=== PATIENT | male | born 1975 | race Caucasian/White ===

== ENCOUNTER 2017-06-25 14:13 | Inpatient (IN) | payer SELFPAY ==
[2017-06-25 14:46] LABS: PLATELET COUNT 282 10^3/uL (150-400)
--- NOTE | 2017-06-25 15:06 | EDPHY ---
General Time Seen by Provider: 06/25/17 14:51 Narrative: CHIEF COMPLAINT: M1 HISTORY OF PRESENT ILLNESS: Patient arrives on an M1 hold from [facility]. They documented that the patient is suicidal, exhibiting paranoid delusions. He denies delusions but does state he has been feeling suicidal. This comes and goes for him. He denies a plan. He denies any intent at this time but does have intent at certain times. Has history of bipolar disorder and major depressive disorder. PSYCHIATRIC DIAGNOSES: Bipolar disorder, major depression disorder, suicidal ideation PRIOR PSYCHIATRIC EVALUATIONS: Multiple M1/DETAINER: Just prior to arrival, [facility] REVIEW OF SYSTEMS: Ten systems reviewed and are negative unless otherwise noted in the HPI EXAMINATION General Appearance: Alert, no distress. Well kempt Head: normocephalic, atraumatic Eyes: Pupils equal and round, no conjunctival pallor or injection ENT, Mouth: Mucous membranes moist Neck: Normal inspection, supple, non-tender Respiratory: Lungs are clear to auscultation Cardiovascular: Regular rate and rhythm. No murmur Gastrointestinal: Abdomen is soft and nontender Back: non-tender, no bony abnormalities Neurological: A&O, nonfocal, normal gait Skin: Warm and dry, no rash. Multiple tattoos Extremities: Nontender, no pedal edema Psychiatric: Hypomanic. Describes paranoid delusions. Admits to suicidal ideation. DIFFERENTIAL DIAGNOSES: Including but not limited to bipolar disorder, paranoid schizophrenia, delusions , suicidal ideation, tracee, hypomania, abnormal lithium levels MDM: 3:05 p.m. M1 hold due to bipolar with paranoid schizophrenia and suicidal ideation. The patient does exhibit suicidal thoughts, hypomanic or manic behavior. He is exhibiting flight of ideas. He is calm and cooperative at this time. He has been placed on an M1 hold by [facility]. Laboratory studies including lithium level are pending. 3:13 p.m. At this time the patient is medically cleared for evaluation. His drug screen does reveal positive cocaine. We will discuss with [facility] 4:05 p.m. Mara is here to evaluate the patient. 6:00 p.m. Patient has been accepted to [address] [place] [address] for inpatient psychiatric care. EMTALA has been completed and signed by Dr. Engel. He will be transferred by EMS. Transported stable condition. SUPERVISION: Patient was independently examined, but I discussed the case with my secondary supervising physician Dr. Engel - History Smoking Status: Never smoked - Objective Vital Signs: Initial Vital Signs Temperature (C) 98.1 F 06/25/17 14:28 Heart Rate 60 06/25/17 14:28 Respiratory Rate 18 06/25/17 14:28 Blood Pressure 144/88 H 06/25/17 14:28 O2 Sat (%) 95 06/25/17 14:28 O2 Delivery Mode Room Air Allergies/Adverse Reactions: No Known Allergies Allergy (Unverified 06/25/17 14:30) Home Medications: Medication Instructions Recorded Gabapentin 06/25/17 Lexapro 06/25/17 Pillow Carbonate 06/25/17 Seroquel 06/25/17 Laboratory Results: Laboratory Results 06/25/17 14:20 06/25/17 06/25/17 06/25/17 14:20 14:20 14:20 WBC 8.25 10^3/uL 10^3/uL (3.80-9.50) RBC 5.53 10^6/uL 10^6/uL (4.40-6.38) Hgb 16.5 g/dL g/dL (13.7-17.5) Hct 49.9 % % (40.0-51.0) MCV 90.2 fL fL (81.5-99.8) MCH 29.8 pg pg (27.9-34.1) MCHC 33.1 g/dL g/dL (32.4-36.7) RDW 12.5 % % (11.5-15.2) Plt Count 282 10^3/uL 10^3/uL (150-400) MPV 9.8 fL fL (8.7-11.7) Neut % (Auto) 60.1 % % (39.3-74.2) Lymph % (Auto) 29.2 % % (15.0-45.0) [place] % (Auto) 9.3 % % (4.5-13.0) Eos % (Auto) 0.8 % % (0.6-7.6) Baso % (Auto) 0.5 % % (0.3-1.7) Nucleat RBC Rel Count 0.0 % % (0.0-0.2) Absolute Neuts (auto) 4.95 10^3/uL 10^3/uL (1.70-6.50) Absolute Lymphs (auto) 2.41 10^3/uL 10^3/uL (1.00-3.00) Absolute Monos (auto) 0.77 10^3/uL 10^3/uL (0.30-0.80) Absolute Eos (auto) 0.07 10^3/uL 10^3/uL (0.03-0.40) Absolute Basos (auto) 0.04 10^3/uL 10^3/uL (0.02-0.10) Absolute Nucleated RBC 0.00 10^3/uL 10^3/uL (0-0.01) Immature Gran % 0.1 % % (0.0-1.1) Immature Gran # 0.01 10^3/uL 10^3/uL (0.00-0.10) Urine Opiates Screen NEGATIVE (NEGATIVE) Urine Barbiturates NEGATIVE (NEGATIVE) Ur Phencyclidine Scrn NEGATIVE (NEGATIVE) Ur Amphetamine Screen NEGATIVE (NEGATIVE) U Benzodiazepines Scrn NEGATIVE (NEGATIVE) Pillow 0.3 mEq/L L mEq/L (0.6-1.2) Urine Cocaine Screen NON-NEGATIVE H (NEGATIVE) U Marijuana (THC) Screen NON-NEGATIVE H (NEGATIVE) Ethyl Alcohol < 10 mg/dL mg/dL (0-10) Medications Given: Discontinued Medications Quetiapine Fumarate (Seroquel) 100 mg PO EDNOW ONE Stop: 06/25/17 18:07 Last Admin: 06/25/17 18:07 Dose: 100 mg Departure - Departure Disposition: [facility] IP Clinical Impression: Suicidal ideation, Bipolar 1 disorder Condition: Fair Referrals: [facility] [Other] - As per Instructions
[2017-06-25] MEDS ORDERED: QUEtiapine FUMARATE 200 MG TAB ONE (18:03)
[2017-06-25] MEDS ORDERED: QUEtiapine FUMARATE 200 MG TAB PO ONE (18:06)
[2017-06-25] MEDS ORDERED: MAG HYDROX/AL HYDROX/SIMETH 30 ML UDCUP PO PRN (20:39)
[2017-06-25] MEDS ORDERED: MAGNESIUM HYDROXIDE 30 ML UDCUP PO PRN (20:39)
[2017-06-25] MEDS ORDERED: NICOTINE POLACRILEX 2 MG GUM B PRN (20:39)
[2017-06-25] MEDS ORDERED: MELATONIN 3 MG TAB PO PRN (20:45)
[2017-06-25] MEDS: FLUTICASONE/SALMETER 250/50MCG DISKUS IH SCH (21:26)
[2017-06-25] MEDS: ESCITALOPRAM OXALATE 10 MG TAB PO SCH (21:26)
[2017-06-25] MEDS: GABAPENTIN 300 MG CAP PO SCH (21:27)
[2017-06-25] MEDS: LITHIUM CARBONATE ER 300 MG TAB PO SCH (21:28)
[2017-06-25] MEDS: QUEtiapine FUMARATE 300 MG TAB PO SCH (21:29)
[2017-06-25] MEDS: LORazepam 0.5 MG TAB PO PRN (21:37)
[2017-06-26] MEDS ORDERED: LEVOTHYROXINE 75 MCG TAB PO SCH (06:00)
[2017-06-26] MEDS: LORazepam 0.5 MG TAB PO PRN ×3 (06:34→20:07)
[2017-06-26] MEDS: buPROPion XL 150 MG TAB PO SCH (08:23)
[2017-06-26] MEDS: LITHIUM CARBONATE ER 300 MG TAB PO SCH ×2 (08:23→21:11)
[2017-06-26] MEDS: FLUTICASONE/SALMETER 250/50MCG DISKUS IH SCH ×2 (08:23→21:15)
[2017-06-26] MEDS: ACETAMINOPHEN 325 MG TAB PO PRN (11:21)
[2017-06-26] MEDS: OLANZapine DISINTEGR 5 MG TAB PO PRN (12:42)
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
[2017-06-26] MEDS: ESCITALOPRAM OXALATE 10 MG TAB PO SCH (21:10)
[2017-06-26] MEDS: GABAPENTIN 300 MG CAP PO SCH (21:11)
[2017-06-26] MEDS: QUEtiapine FUMARATE 300 MG TAB PO SCH (21:12)
[2017-06-27] MEDS: LORazepam 0.5 MG TAB PO PRN ×2 (06:02→20:04)
[2017-06-27] MEDS: OLANZapine DISINTEGR 5 MG TAB PO PRN (06:06)
[2017-06-27] MEDS: FLUTICASONE/SALMETER 250/50MCG DISKUS IH SCH ×2 (08:33→20:05)
[2017-06-27] MEDS: LITHIUM CARBONATE ER 300 MG TAB PO SCH ×2 (08:33→20:04)
[2017-06-27] MEDS: buPROPion XL 150 MG TAB PO SCH (08:33)
[2017-06-27] MEDS: LEVOTHYROXINE 75 MCG TAB PO SCH (09:32)
[2017-06-27] MEDS: ACETAMINOPHEN 325 MG TAB PO PRN (10:58)
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
--- NOTE | 2017-06-27 14:21 | CPEKG ---
Heart Rate: 53 RR Interval: 1132 P-R Interval: 184 QRSD Interval: 106 QT Interval: 452 QTC Interval: 425 P De Leon: 51 QRS De Leon: -42 T Wave De Leon: 36 EKG Severity - NORMAL ECG - EKG Impression: SINUS RHYTHM EKG Impression: Early R wave progression Electronically Signed By: Davi Gamboa 27-Jun-2017 16:03:21
[2017-06-27] MEDS ORDERED: ALBUTEROL 60 PUFFS/8 GM MDI IH PRN (17:01)
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
[2017-06-27] MEDS: QUEtiapine FUMARATE 300 MG TAB PO SCH (20:04)
[2017-06-27] MEDS: ESCITALOPRAM OXALATE 10 MG TAB PO SCH (20:05)
[2017-06-27] MEDS: GABAPENTIN 300 MG CAP PO SCH (20:05)
[2017-06-28] MEDS: LORazepam 0.5 MG TAB PO PRN ×3 (02:30→21:03)
[2017-06-28] MEDS: OLANZapine DISINTEGR 5 MG TAB PO PRN ×3 (02:38→22:59)
[2017-06-28] MEDS: FLUTICASONE/SALMETER 250/50MCG DISKUS IH SCH ×2 (08:02→21:00)
[2017-06-28] MEDS: ACETAMINOPHEN 325 MG TAB PO PRN (08:03)
[2017-06-28] MEDS: buPROPion XL 150 MG TAB PO SCH (08:03)
[2017-06-28] MEDS: LITHIUM CARBONATE ER 300 MG TAB PO SCH ×2 (08:03→18:08)
[2017-06-28] MEDS: LEVOTHYROXINE 75 MCG TAB PO SCH (09:29)
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
[2017-06-28] MEDS: ESCITALOPRAM OXALATE 10 MG TAB PO SCH (21:00)
[2017-06-28] MEDS: QUEtiapine FUMARATE 300 MG TAB PO SCH (21:00)
[2017-06-28] MEDS: GABAPENTIN 300 MG CAP PO SCH (21:00)
[2017-06-29] MEDS: LORazepam 0.5 MG TAB PO PRN ×2 (05:19→12:46)
[2017-06-29 06:12] VITALS: BP 113/79
[2017-06-29] MEDS: LITHIUM CARBONATE ER 300 MG TAB PO SCH (08:17)
[2017-06-29] MEDS: buPROPion XL 150 MG TAB PO SCH (08:17)
[2017-06-29] MEDS: OLANZapine DISINTEGR 5 MG TAB PO PRN (08:17)
[2017-06-29] MEDS: FLUTICASONE/SALMETER 250/50MCG DISKUS IH SCH (08:17)
[2017-06-29] MEDS: LEVOTHYROXINE 75 MCG TAB PO SCH (10:08)
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
== END 2017-06-29 13:55 | disposition home or self-care (01) | DRG 885 ==
LOC: EEVIPCON 14:13 → BBEH 19:40
PROVIDERS: ADMIT Psychiatry & Neurology Psychiatry; ATTEND Psychiatry & Neurology Psychiatry
DX: F31.2 Bipolar disorder, current episode manic severe with psychotic features (principal); J45.909 Unspecified asthma, uncomplicated; E03.9 Hypothyroidism, unspecified; F14.959 Cocaine use, unspecified with cocaine-induced psychotic disorder, unspecified; F12.959 Cannabis use, unspecified with psychotic disorder, unspecified
CPT/HCPCS: 80305; G0480

== ENCOUNTER 2017-12-02 15:19 | Inpatient (IN) | payer MEDICAID ==
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
[2017-12-02 16:10] LABS: PLATELET COUNT 226 10^3/uL (150-400)
[2017-12-02] MEDS ORDERED: IOPAMIDOL (ISOVUE 370) 100 ML BTL IV ONE (17:36)
[2017-12-02] MEDS ORDERED: ACETAMINOPHEN 325 MG TAB PO PRN (19:36)
[2017-12-02] MEDS ORDERED: ONDANSETRON DISINTEGRATING 4 MG TAB PO PRN (19:36)
[2017-12-02] MEDS ORDERED: HYDROCODONE/APAP 5/325 TAB PO PRN (19:36)
[2017-12-02] MEDS ORDERED: IBUPROFEN 200 MG TAB PO PRN (19:36)
[2017-12-02] MEDS ORDERED: oxyCODONE IR 5 MG TAB PO PRN (19:36)
[2017-12-02] MEDS ORDERED: ONDANSETRON 4 MG/2 ML VIAL IVP PRN (19:36)
[2017-12-02] MEDS ORDERED: ALBUTEROL 60 PUFFS/8 GM MDI IH PRN (19:38)
[2017-12-02] MEDS ORDERED: QUEtiapine FUMARATE 50 MG TAB PO PRN (19:38)
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
[2017-12-02] MEDS: QUEtiapine FUMARATE 300 MG TAB PO SCH (20:13)
[2017-12-02] MEDS: AZITHROMYCIN 250 MG TAB PO SCH (20:13)
[2017-12-02] MEDS: LITHIUM CARBONATE ER 300 MG TAB PO SCH (20:13)
[2017-12-02] MEDS: GABAPENTIN 300 MG CAP PO SCH (20:13)
[2017-12-02] MEDS: NS W/ 20 KCl/L 1,000 ML IV SCH (20:14)
[2017-12-03] MEDS: NS W/ 20 KCl/L 1,000 ML IV SCH (03:45)
[2017-12-03] MEDS: LEVOTHYROXINE 75 MCG TAB PO SCH (04:48)
[2017-12-03 06:18] LABS: PLATELET COUNT 221 10^3/uL (150-400)
--- NOTE | 2017-12-03 09:02 | PDMN ---
Medical Necessity Medical necessity: MCG 42 y/o w/ left sided CAP, WBC 22.69, acute hypoxic resp fx (84% on RA), oxygen required to keep sats >90%, small left pleural effusion noted, hyponatremic, sched nebs, IV antibx and IVF started, BC pending. Hx bipolar d/o
[2017-12-03] MEDS: buPROPion XL 150 MG TAB PO SCH (09:39)
[2017-12-03] MEDS: AZITHROMYCIN 250 MG TAB PO SCH (09:39)
[2017-12-03] MEDS: ESCITALOPRAM OXALATE 10 MG TAB PO SCH (09:40)
[2017-12-03] MEDS: LITHIUM CARBONATE ER 300 MG TAB PO SCH ×2 (09:40→20:22)
[2017-12-03] MEDS: FLUTICASONE/SALMETER 250/50MCG DISKUS IH SCH (09:40)
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
--- NOTE | 2017-12-03 14:07 | HOSPPROG ---
Hospitalist Progress Note Assessment/Plan: 42yo M with history of bipolar d/o, polysubstance abuse presents with dyspnea and cough found to have pneumonia. #LLL pneumonia: RVP + for rhinovirus but appearance of infiltrate on CT suspicious for superimposed bacterial process. Treating for CAP. Small pleural effusion. - CTX + azithromycin - Sent off legionella and strep pneumo urine ags - Monitor for complications including worsening parapneumonic effusion #Acute hypoxemic respiratory insufficiency: Now resolved - Continue home bronchodilators #Pleuritis: Related to pna. - Ibuprofen #Hyponatremia: Resolved with IVF. #Hypothyroidism: Home LT4. #Bipolar: Compensated. Continue home meds. VTE ppx: SCDs Dispo: Remain inpatient for IV antibiotics. I don't feel comfortable with him discharging yet given the severity of his pneumonia on imaging. Subjective: Still feeling short of breath with activity and coughing up slightly reddish material. Also having pain when takes deep breath. No fevers. Objective: Vital Signs Temp Pulse Resp BP Pulse Ox 36.6 C 52 L 12 94/64 L 89 L 12/03/17 11:03 12/03/17 11:04 12/03/17 11:03 12/03/17 11:04 12/03/17 11:03 Microbiology 12/02/17 22:50 Respiratory Panel (PCR) - Final Nasal, Sinus - Swab Human Rhinovirus/Enterovirus Laboratory Results 12/03/17 05:32 12/03/17 05:32 12/02/17 12/03/17 12/04/17 05:59 05:59 05:59 Intake Total 100 Balance 100 - Physical Exam Constitutional: no apparent distress, appears nourished, not in pain Eyes: PERRL, anicteric sclera, EOMI Ears, Nose, Mouth, Throat: moist mucous membranes, hearing normal, ears appear normal, no oral mucosal ulcers Cardiovascular: regular rate and rhythym, no murmur, rub, or gallop Respiratory: reduced air movement (left base), aegophony (left base), dullness to percussion (left base), No expiratory wheeze Gastrointestinal: normoactive bowel sounds, soft, non-tender abdomen, no palpable masses Skin: no rashes or abrasions, no fluctuance, no induration, other (numerous tattoos) Neurologic: AAOx3, sensation intact bilaterally Psychiatric: interacting appropriately, not anxious, not encephalopathic, thought process linear ICD10 Worksheet Patient Problems: Problems Problem Status Onset Hypoxemia Acute Pneumonia Acute Bipolar 1 disorder Acute Suicidal ideation Acute
[2017-12-03] MEDS: GABAPENTIN 300 MG CAP PO SCH (20:22)
[2017-12-03] MEDS: QUEtiapine FUMARATE 300 MG TAB PO SCH (20:22)
[2017-12-04] MEDS: LEVOTHYROXINE 75 MCG TAB PO SCH (05:10)
[2017-12-04] MEDS: FLUTICASONE/SALMETER 250/50MCG DISKUS IH SCH (09:55)
[2017-12-04] MEDS: LITHIUM CARBONATE ER 300 MG TAB PO SCH (10:00)
[2017-12-04] MEDS: ESCITALOPRAM OXALATE 10 MG TAB PO SCH (10:00)
[2017-12-04] MEDS: AZITHROMYCIN 250 MG TAB PO SCH (10:00)
[2017-12-04] MEDS: buPROPion XL 150 MG TAB PO SCH (10:01)
[2017-12-04 11:51] VITALS: BP 98/60
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
--- NOTE | 2017-12-04 15:12 | ASMTDCNOTE ---
Case Management Discharge Discharge Order Complete? Answers: No Patient to Obtain Answers: Independently Medications Transportation Arranged Answers: Other Notes: self Discharge Comments Notes: CM discussed patient with RN, no CM needs identified, patient discharged home independently. Date Signed: 12/04/2017 03:11 PM Electronically Signed By:Leni Hernandez
--- NOTE | 2017-12-04 20:32 | PDDCSUM ---
Discharge Summary Discharge Summary: Date of Admission: 12/02/2017 Date of Discharge: 12/04/2017 Consultants: none Disposition: home Discharge Diagnoses: 1. Left lower lobe community acquired pneumonia 2. Acute hypoxemic respiratory insufficiency, resolved 3. Pleuritis 4. Bipolar d/o 5. Hypothyroidism Brief Hospital Course: 42yo M with history of bipolar d/o, past polysubstance abuse presented with 2 weeks of dyspnea and cough found to have rather severe, dense LLL pneumonia on CT associated with small pleural effusion. Was started on CTX + azithro and discharged to complete course of levofloxacin for CAP. Hypoxia resolved. He did have a component of pleuritis and I recommended nsaids for this. The pleural effusion was too small for thoracentesis but is likely parapneumonic. Strict return precautions were given. If not improving, will certainly need pleural fluid to be sampled. Medications: Please refer to EMR for complete list. Changes this admission include addition of levofloxacin. Follow Up Plan: 1. Strep pneumo and Legionella urine antigen tests pending at discharge 2. Establish with PCP Physical Exam: Vitals reviewed, afebrile with normal HR and BP. Alert and oriented. RRR, no m/r/g. Diminished breath sounds with egophony over left lung base but other lung hernandez clear. Abdomen soft, nontender. No rashes.
== END 2017-12-04 13:35 | disposition home or self-care (01) | DRG 139 ==
LOC: OBSVTOIN 18:50 → F3E 19:36
PROVIDERS: ADMIT Family Medicine; ATTEND Family Medicine
DX: J18.9 Pneumonia, unspecified organism (principal); J96.01 Acute respiratory failure with hypoxia; E87.1 Hypo-osmolality and hyponatremia; E03.9 Hypothyroidism, unspecified; F31.9 Bipolar disorder, unspecified
CPT/HCPCS: 87449-90; 96374; J0696; Q9967